=== PATIENT | female | born 2000 | race Caucasian/White ===

== ENCOUNTER 2024-09-15 15:38 | Emergency (ER) | payer MEDICAID ==
[~2024-09-15] VITALS: Ht 175.3 cm; Wt 108.0 kg
[2024-09-15 15:47] VITALS: O2SAT 98
[2024-09-15] MEDS: KETOROLAC 30MG/ML VIAL IV STA (16:31)
[2024-09-15] MEDS: IBUPROFEN 600MG TABLET PO STA (16:32)
[2024-09-15] MEDS ORDERED: TOPUD PO (18:09)
[2024-09-15] MEDS ORDERED: IBUP-2029 MT (18:09)
[2024-09-15 18:21] VITALS: BP 138/63; PULSE 82; RESP 16; TEMP 36.8; O2SAT 99
== END 2024-09-15 18:21 | disposition home or self-care (01) ==
LOC: ER 15:38
DX: G89.29 Other chronic pain (principal); M54.50 Low back pain, unspecified; J45.909 Unspecified asthma, uncomplicated; M48.061 Spinal stenosis, lumbar region without neurogenic claudication
CPT/HCPCS: 81025; 72100; 96374; 99283; J1885; Z7610